=== PATIENT | female | born 1975 | race Caucasian/White ===

== ENCOUNTER 2023-05-16 06:37 | Emergency (ER) | payer SELFPAY ==
[2023-05-16] MEDS ORDERED: Acetaminophen 500 MG TAB ONE (06:46)
[2023-05-16 07:45] LABS: SARS-CoV-2 NAA Rapid Test Not Detected (NotDetected)
[2023-05-16] MEDS ORDERED: Albuterol 200 PUFF (6.7GM INHALER) ONE (07:50)
[2023-05-16] MEDS ORDERED: Oxymetazoline HCl 0.05% (30 ML BOT) ONE (07:50)
[2023-05-16] MEDS ORDERED: Amoxicillin/Potassium Clav 875 MG TAB ONE (07:50)
== END 2023-05-16 08:15 | disposition home or self-care (01) ==
LOC: ERS 06:37
DX: J10.1 Influenza due to other identified influenza virus with other respiratory manifestations (principal); J45.901 Unspecified asthma with (acute) exacerbation; J01.90 Acute sinusitis, unspecified
CPT/HCPCS: 87081; 87430